=== PATIENT | female | born 1980 | race Caucasian/White ===

== ENCOUNTER 2016-08-30 15:38 | Emergency (ER) | payer OTHER ==
--- NOTE | 2016-08-30 13:26 | PM ---
DATE OF VISIT: 08/30/2016. SEEN BY: KATHE Moss.* HISTORY: Ms. Cheney is a 36-year-old woman seen today at the [facility] for follow-up of going chronic pain. She suffers from neck pain, bilateral arm pain and right leg pain. She does suffer from complex regional pain syndrome of the right leg. The pain underwent vein stripping with Dr. Kimbrough approximately [id number] months ago and feels she has recovered from that surgical procedure and is doing fairly well. She does report in the last few months she has had increased pain in her right abdomen and right hip. She is currently on permanent disability due to her ongoing chronic pain. Her current pain management regime includes OxyContin 20 mg b.i.d., Oxycodone 15 mg up to four times daily, Neurontin 600 mg q.i.d., and Robaxin 500 mg b.i.d. She denies any adverse effect from this medication regime. She reports her current pain level is 6/10 and feels current pain regime is 60 percent efficacious. The patient does continue smoking approximately five cigarettes per day. She reports rare alcohol use. PHYSICAL EXAMINATION: Vital Signs: Blood pressure 147/85, pulse 97, respirations 14, O2 saturations 97 percent on room air. The patient is alert and oriented times three, cooperative with exam and coherent with a logical thought process. She does have some tenderness over the right hip and right abdomen with palpation. Sensation is intact to light touch in the upper and lower extremities. She does also have tenderness along the cervical spine. No range of motion limitations with head and neck extension and flexion or side to side turning. She is ambulatory with a steady gait without any assistive devices. ASSESSMENT: Chronic neck pain, bilateral arm pain, right leg pain, and right hip pain. PLAN: At this point, we will continue the patient on the current pain management regime stated above as she does report it being 60 percent efficacious. The patient will follow up in two months or sooner if needed. The [facility] I-STOP was checked and was as anticipated. RUTHANN MICHAUD NP CC: Dr. Law* [id number]/[facility] #: [id number] KALYAN
[2016-08-30 16:50] VITALS: BP 141/90
== END 2016-08-30 17:08 | disposition left against medical advice (07) ==
LOC: ED 15:38
DX: K62.5 Hemorrhage of anus and rectum (principal); Z53.21 Procedure and treatment not carried out due to patient leaving prior to being seen by health care provider
CPT/HCPCS: 99281

== ENCOUNTER 2017-03-06 18:25 | Emergency (ER) | payer OTHER ==
--- NOTE | 2017-03-06 20:49 | ED ---
Oscar Little SooYoung, scribed for Saravanan Arias MD on 03/06/17 at 1951 . Lower Extremity - HPI Summary HPI Summary: A 36 y/o F presents to ED with c/o hematomas to lateral aspect of R calf onset this afternoon. She states she fell from a kneeling position, and a few minutes later, once she was sitting, she noticed three painful bulges on her calf. Pain described as sharp and radiating up her RLE. PMHx: RSD. - History of Current Complaint Chief Complaint: EDExtremityLower Stated Complaint: FALL/RT LEG INJURY Time Seen by Provider: 03/06/17 19:45 Hx Obtained From: Patient Hx Last Menstrual Period: 11/22/14 Mechanism Of Injury: Fall From Height Of: - kneeling Onset of Pain: Minutes Onset/Duration: Still Present Severity Initially: Moderate Severity Currently: Moderate Pain Intensity: 8 Pain Scale Used: 0-10 Numeric Timing: Constant, Lasting Hours Location: Is Discrete @ - R calf Character Of Pain: Sharp Aggravating Factor(s): Nothing Alleviating Factor(s): Nothing - Allergies/Home Medications Allergies/Adverse Reactions: Allergies Allergy/AdvReac Type Severity Reaction Status Date / Time CI Pigment Blue 63 Allergy Severe hives and Verified 03/06/17 19:11 [From Cymbalta] eye pain, sensitivity to light Diphenhydramine Allergy Severe Anaphylatic Verified 03/06/17 19:11 [From Benadryl] Shock Duloxetine [From Cymbalta] Allergy Severe hives and Verified 03/06/17 19:11 eye pain, sensitivity to light Morphine Allergy Severe itch Verified 03/06/17 19:11 Penicillins Allergy Severe Anaphylatic Verified 03/06/17 19:11 Shock Amoxicillin Allergy Anaphylatic Verified 03/06/17 19:11 Shock Vancomycin Allergy Diarrhea Verified 03/06/17 19:11 PMH/Surg Hx/FS Hx/Imm Hx Previously Healthy: No Endocrine/Hematology History: Reports: Hx Anemia - ON IRON FOR Denies: Hx Diabetes, Hx Sickle Cell Disease, Hx Thyroid Disease Cardiovascular History: Denies: Hx Congestive Heart Failure, Hx Hypertension, Hx Pacemaker/ICD, Other Cardiovascular Problems/Disorders Respiratory History: Reports: Hx Sleep Apnea - ?- NOT DIAGNOSED, Other Respiratory Problems/Disorders - PT IS A CURRENT SMOKER Denies: Hx Asthma, Hx Chronic Obstructive Pulmonary Disease (COPD) GI History: Reports: Hx Gastroesophageal Reflux Disease - UNDER CONTROL PER PATIENT WITH MEDICATION, Hx Irritable Bowel - IBS, Other GI Disorders - HEARTBURN History: Reports: Hx Kidney Infection - IN PAST, Hx Kidney Stones - IN PAST Denies: Hx Renal Disease, Other Problems/Disorders Musculoskeletal History: Reports: Hx Arthritis - HANDS, Hx Back Problems, Hx Fibromyalgia, Other Musculoskeletal History - right knee surgery - ACL repair x2 Sensory History: Reports: Hx Cataracts - BILATERAL, Hx Contacts or Glasses - GLASSES Denies: Hx Glaucoma, Hx Hearing Aid Opthamlomology History: Reports: Hx Cataracts - BILATERAL, Hx Contacts or Glasses - GLASSES Denies: Hx Glaucoma Neurological History: Reports: Hx Headaches, 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 RT KNEE ACL [place]ONSTRU[place]OGRAFT [place]STRING [place] [facility] [facility] [place],. Right knee lavage ;. DCS Trial 02/25/14. DCS, PERMANENT STIMULATOR PLACED IN BACK X2 & 04/08/14 AND THEN STIMULATOR COMPLETELY REMOVED (NO LEAD WIRES LEFT) ;. 02/10-. LEEP - 2011. RIGHT HIP TUMOR REMOVED-. RIGHT HIP infection (post tumor removal) with wound vac. right leg varicose vein removal Hx Anesthesia Reactions: Yes - SOME BREATHING ISSUES- RESOLVED WITH OXYGEN-1ST STIMULATOR REMOVAL - Immunization History Date of Tetanus Vaccine: unk Infectious Disease History: No Infectious Disease History: Reports: Hx of Known/Suspected MRSA, History Other Infectious Disease - Staph infections x2 Denies: Traveled Outside the [place] in Last 30 Days - Family History Known Family History: Positive: Hypertension, Other - Mother has hx of blood clots - Social History Occupation: Unemployed Lives: With Family Alcohol Use: None Hx Substance Use: Yes Substance Use Comment - Amount & Last Used: oxycodone and oxycontin Hx Tobacco Use: Yes Smoking Status (MU): Current Every Day Smoker Type: Cigarettes Amount Used/How Often: 1/2 PPD Length of Time of Smoking/Using Tobacco: 20 years Have You Smoked in the Last Year: Yes Review of Systems Negative: Fever Negative: Cough Positive: Myalgia - RLE All Other Systems Reviewed And Are Negative: Yes Physical Exam Triage Information Reviewed: Yes Vital Signs On Initial Exam: Initial Vitals BP 156/78 03/06/17 19:00 Vital Signs Reviewed: Yes Appearance: Positive: No Pain Distress, Obese Skin: Positive: Warm Head/Face: Positive: Normal Head/Face Inspection Eyes: Positive: KYLIE ENT: Positive: Hearing grossly normal Neck: Positive: Supple Respiratory/Lung Sounds: Positive: Breath Sounds Present Cardiovascular: Positive: RRR Abdomen Description: Positive: Nontender, Soft Bowel Sounds: Positive: Present Musculoskeletal: Positive: Other - rt prox lower leg with few areas of non tender hematoma, no calf trnderness Neurological: Positive: Alert, Oriented to Person Place, Time Psychiatric: Positive: Affect/Mood Appropriate Diagnostics - Vital Signs Vital Signs Temp Pulse Resp BP Pulse Ox 03/06/17 19:07 99.2 F 84 16 156/78 98 03/06/17 19:02 89 95 03/06/17 19:01 99.2 F 88 16 156/78 97 03/06/17 19:00 156/78 - Laboratory Lab Statement: Any lab studies that have been ordered have been reviewed, and results considered in the medical decision making process. - Ultrasound No standard instances Ultrasound Interpretation: No Acute Changes - VENOUS DOPPLER, IMPRESSION: No evidence for DVT. Ultrasound Interpretation Completed By: Radiologist Re-Evaluation - Re-Evaluation First Eval Change: Improved - results d/w pt Lower Extremity Course/Dx - Course Course Of Treatment: A 36 y/o F presents to ED with c/o hematomas to lateral aspect of R calf onset this afternoon. She states she fell from a kneeling position, and a few minutes later, once she was sitting, she noticed three painful bulges on her calf. Pain described as sharp and radiating up her RLE. PMHx: RSD. Venous Doppler U/S shows no evidence for DVT. Will D/C pt home to f/ u with PCP. - Diagnoses Provider Diagnoses: Leg pain Discharge - Discharge Plan Condition: Stable Disposition: HOME Patient Education Materials: Leg Pain (ED) Referrals: Alison Law MD [Primary Care Provider] - 2 Days Additional Instructions: Please return to the ED if you experience new or worsening symptoms. The documentation as recorded by the Oscar regalado SooYoung accurately reflects the service I personally performed and the decisions made by me, Saravanan Arias MD.
--- NOTE | 2017-03-06 21:15 | RAD ---
HISTORY: Right lateral calf bruising TECHNIQUE: Multiple transverse and longitudinal ultrasound images were obtained of the veins of the right lower extremity using grayscale, color Doppler, and spectral Doppler imaging with and without compression and with augmentation. FINDINGS: VEINS: The common femoral vein, deep femoral vein, femoral vein and popliteal vein are compressible throughout their course, with normal flow on color Doppler imaging and normal response to augmentation on spectral Doppler imaging. SOFT TISSUES: Grossly normal. No large popliteal fossa cyst was identified. IMPRESSION: No sonographic evidence of deep vein thrombosis.
[2017-03-06 21:29] VITALS: BP 127/40
== END 2017-03-06 21:32 | disposition home or self-care (01) ==
LOC: ED 18:25
DX: M79.604 Pain in right leg (principal); M79.1 Myalgia; F17.210 Nicotine dependence, cigarettes, uncomplicated
CPT/HCPCS: 99282

== ENCOUNTER 2018-07-15 12:33 | Emergency (ER) | payer OTHER ==
[2018-07-15 12:52] VITALS: BP 144/96
--- NOTE | 2018-07-15 13:19 | UC ---
Head Injury HPI - HPI Summary HPI Summary: 38 y/o female with h/o fibromyalgia, RSD affecting R LEs, with h/o decreased muscle strength UE due to cervical disease, multiple concussions in past, presents after fall down steps on 07/11/2018, patient fell down 6 steps, landing on buttock/ lower body, believes hit head on wall, no LOC, + dizziness, was helped by after fall, he did not witness fall. Since this time, + headache, + nausea, difficulty focusing, headache that has not improved. - History Of Current Complaint Chief Complaint: UCHeadache Stated Complaint: HEAD INJURY Time Seen by Provider: 07/15/18 12:58 Hx Obtained From: Patient Hx Last Menstrual Period: current ?: No Onset/Duration: Sudden Onset, Lasting Days - Since thurs Severity Currently: Moderate Severity Initially: Moderate Pain Intensity: 7 Pain Scale Used: 0-10 Numeric - Allergies/Home Medications Allergies/Adverse Reactions: Allergies Allergy/AdvReac Type Severity Reaction Status Date / Time amoxicillin Allergy Severe Anaphylatic Verified 07/15/18 10:20 Shock diphenhydramine Allergy Severe Anaphylatic Verified 07/15/18 10:20 [From Benadryl] Shock duloxetine [From Cymbalta] Allergy Severe Hives Verified 07/15/18 10:20 Penicillins Allergy Severe Anaphylatic Verified 07/15/18 10:20 Shock morphine AdvReac Itching Verified 07/15/18 10:20 vancomycin AdvReac Diarrhea Verified 07/15/18 10:20 CI Pigment Blue 63 Allergy Severe Hives Uncoded 06/07/18 12:06 PMH/Surg Hx/FS Hx/Imm Hx Previously Healthy: Yes - Surgical History Surgical History: Yes Surgery Procedure, Year, and Place: NECK FUSION 2011,. RT KNEE ACL RECONSTRU[place] W/[place]OGRAFT [place]STRING [place] [facility] [place],. Right knee lavage DUE TO INFECTIONS. DCS Trial 02/25/14. DCS, PERMANENT STIMULATOR PLACED IN BACK X2 07/27/14 & 04/08/14 AND THEN STIMULATOR COMPLETELY REMOVED (NO LEAD WIRES LEFT) 10/03/14;. 02/10-. LEEP - 2011. RIGHT HIP TUMOR REMOVED- . RIGHT HIP infection (post tumor removal) with wound vac. right leg varicose vein removal - Family History Known Family History: Positive: Hypertension, Other - Mother has hx of blood clots - Social History Alcohol Use: None Alcohol Amount: 1 drink per week Substance Use Type: Marijuana Substance Use Comment - Amount & Last Used: medical Smoking Status (MU): Light Every Day Tobacco Smoker Type: Cigarettes Amount Used/How Often: 1/2 PPD Length of Time of Smoking/Using Tobacco: 20 years Have You Smoked in the Last Year: Yes Household Exposure Type: Cigarettes - Immunization History Most Recent Influenza Vaccination: 2001 Most Recent Tetanus Shot: 2011 Most Recent Pneumonia Vaccination: never Review of Systems All Other Systems Reviewed And Are Negative: Yes Constitutional: Positive: Fatigue Eyes: Positive: Photophobia. Negative: Blurred Vision Gastrointestinal: Positive: Nausea Neurological: Positive: Headache Is Patient Immunocompromised?: No Physical Exam Triage Information Reviewed: Yes Appearance: Well-Appearing, Well-Nourished, Pain Distress - mild Vital Signs: Initial Vital Signs Temp 98.4 F 07/15/18 12:46 Pulse 98 07/15/18 12:46 Resp 16 07/15/18 12:46 BP 144/96 07/15/18 12:46 Pulse Ox 100 07/15/18 12:46 Vital Signs Reviewed: Yes Eyes: Positive: Conjunctiva Clear, Other: - EMOI, PERRLA Neck: Positive: Supple, Tenderness @ - cervical spine, para spinal muscles, SCM , b/l. Negative: Nuchal Rigidity, Enlarged Nodes @ Respiratory: Positive: Chest non-tender Neurological: Positive: Other: - patient with complex medical history of neurlogical deficits, amublating with cane Psychological Exam: Normal Skin Exam: Normal Skin: Positive: Other - no lesions/ bruising, deficits over L skull, neck. Head Injury Course/Dx - Course Course Of Treatment: CT- head, cervical spine negative for acute injury, bleeding. Post-concussion syndrome, info given, OTCs for pain - Differential Dx/Diagnosis Differential Diagnosis/HQI/PQRI: Cerebral Contusion, Concussion With LOC, Concussion Without LOC, Skull Fracture, Zygomatic Fracture Provider Diagnosis: Post concussion syndrome Discharge - Sign-Out/Discharge Documenting (check all that apply): Patient Departure All imaging exams completed and their final reports reviewed: Yes - Discharge Plan Condition: Fair Disposition: HOME Prescriptions: Lidocaine PATCH 5%* [Lidoderm 5% Patch*] 1 patch TRANSDERM DAILY #10 patch Patient Education Materials: Cervical Strain (DC), Post Concussion Syndrome (ED ) Referrals: Alison Law MD [Primary Care Provider] - Additional Instructions: - GO to ER with memory changes, Speech/ motor changes, increased headache or vomiting - Increase rest - increase fluids - Motrin/ tylenol as needed for pain, headache - Billing Disposition and Condition Condition: FAIR Disposition: Home
== END 2018-07-15 14:28 | disposition home or self-care (01) ==
LOC: UCEAST 12:33
DX: F07.81 Postconcussional syndrome (principal); W10.9XXA Fall (on) (from) unspecified stairs and steps, initial encounter; Y93.9 Activity, unspecified; Y92.9 Unspecified place or not applicable; Z88.0 Allergy status to penicillin; Z88.1 Allergy status to other antibiotic agents; Z88.2 Allergy status to sulfonamides; Z88.8 Allergy status to other drugs, medicaments and biological substances; F17.210 Nicotine dependence, cigarettes, uncomplicated
CPT/HCPCS: 70450; 72125; 99212; G0463

== ENCOUNTER 2019-03-07 13:33 | Emergency (ER) | payer OTHER ==
[2019-03-07 13:50] VITALS: BP 141/80
--- NOTE | 2019-03-07 14:12 | UC ---
Lower Extremity/Ankle HPI - HPI Summary HPI Summary: 4 DAYS OF RIGHT FOOT PAIN AND SWELLING AFTER [place]. PATIENT HAS CHRONIC PAIN IN HER RIGHT LOWER EXTREMITY DUE TO RSD BUT STATES HER FOOT NOW FEELS WORSE. SHE ALSO HAS SOME SWELLING IN HER LEFT FOOT. SHE DOES REPORT A RECENT 6 HOUR CAR RIDE HOWEVER THE SWELLING STARTED BEFORE THIS. SHE IS NOT CONCERNED ABOUT DVT TODAY. - History of Current Complaint Chief Complaint: UCLowerExtremity Stated Complaint: FOOT INJURY Time Seen by Provider: 03/07/19 13:48 Hx Obtained From: Patient Hx Last Menstrual Period: 02/15/19 Onset/Duration: Sudden Onset, Lasting Days, Still Present Severity Initially: Moderate Severity Currently: Moderate Pain Intensity: 8 Pain Scale Used: 0-10 Numeric Aggravating Factor(s): Standing, Ambulation Alleviating Factor(s): Rest, Elevation Able to Bear Weight: Yes - Allergies/Home Medications Allergies/Adverse Reactions: Allergies Allergy/AdvReac Type Severity Reaction Status Date / Time amoxicillin Allergy Severe Anaphylatic Verified 03/07/19 13:50 Shock diphenhydramine Allergy Severe Anaphylatic Verified 03/07/19 13:50 [From Benadryl] Shock duloxetine [From Cymbalta] Allergy Severe Hives Verified 03/07/19 13:50 Penicillins Allergy Severe Anaphylatic Verified 03/07/19 13:50 Shock morphine AdvReac Itching Verified 03/07/19 13:50 vancomycin AdvReac Diarrhea Verified 03/07/19 13:50 CI Pigment Blue 63 Allergy Severe Hives Uncoded 03/07/19 13:50 Home Medications: Home Medications Ibuprofen TAB* [Advil TAB*] 400 mg PO Q6H PRN 03/07/19 [History Confirmed ] PMH/Surg Hx/FS Hx/Imm Hx Cardiovascular History: Hypertension - Surgical History Surgical History: Yes Surgery Procedure, Year, and Place: NECK FUSION 2011,. RT KNEE ACL RECONSTRUCTION W/AUTOGRAFT HAMSTRING 2012 @ [facility] – [place]/ DR AVILA,. Right knee lavage DUE TO INFECTIONS. DCS Trial 02/25/14. DCS, PERMANENT STIMULATOR PLACED IN BACK X2 07/27/14 & 04/08/14 AND THEN STIMULATOR COMPLETELY REMOVED (NO LEAD WIRES LEFT) 10/03/14;. 02/10-. LEEP - 2011. RIGHT HIP TUMOR REMOVED- . RIGHT HIP infection (post tumor removal) with wound vac. right leg varicose vein removal - Family History Known Family History: Positive: Hypertension, Other - Mother has hx of blood clots - Social History Alcohol Use: Rare Alcohol Amount: 1 drink per week Substance Use Type: Marijuana Substance Use Comment - Amount & Last Used: about twice a week Smoking Status (MU): Light Every Day Tobacco Smoker Type: Cigarettes Amount Used/How Often: 1/2 PPD Length of Time of Smoking/Using Tobacco: 20 years Have You Smoked in the Last Year: Yes Household Exposure Type: Cigarettes - Immunization History Most Recent Influenza Vaccination: 2001 Most Recent Tetanus Shot: 2011 Most Recent Pneumonia Vaccination: never Review of Systems All Other Systems Reviewed And Are Negative: Yes Constitutional: Positive: Negative Skin: Positive: Negative Respiratory: Positive: Negative Cardiovascular: Positive: Negative Gastrointestinal: Positive: Negative Musculoskeletal: Positive: Arthralgia, Edema. Negative: Calf Tenderness Physical Exam Triage Information Reviewed: Yes Appearance: Well-Appearing, No Pain Distress, Well-Nourished Vital Signs: Initial Vital Signs Temp 99.5 F 03/07/19 13:43 Pulse 95 03/07/19 13:43 Resp 16 03/07/19 13:43 BP 141/80 03/07/19 13:43 Pulse Ox 97 03/07/19 13:43 Vital Signs Reviewed: Yes Eyes: Positive: Conjunctiva Clear ENT: Positive: Hearing grossly normal Neck: Positive: Supple Respiratory: Positive: No respiratory distress, No accessory muscle use Cardiovascular: Positive: Pulses Normal Abdomen Description: Positive: Soft Musculoskeletal: Positive: ROM Limited @ - RIGHT FOOT, Edema @ - BILATERAL FEET 1+, Other: - TTP BRIDGE OF RIGHT FOOT Neurological: Positive: Alert Psychological: Positive: Age Appropriate Behavior Skin: Negative: Rashes Diagnostics - Radiology RIGHT FOOT XRAY Radiology Interpretation Completed By: Radiologist Summary of Radiographic Findings: SOFT TISSUE SWELLING, NO FRACTURE IS SEEN. Lower Extremity Course/Dx - Course Course Of Treatment: X-RAY SHOWS SOFT TISSUE SWELLING BUT NO BONY INJURY. UNCLEAR ETIOLOGY OF THE SWELLING IN PATIENTS FEET. SHE IS NOT CONCERNED ABOUT DVT TODAY. ADVISED TO FOLLOW-UP WITH ORTHOPEDICS IF HER SYMPTOMS DO NOT IMPROVE. TO THE ER WITHOUT FAIL IF HER SYMPTOMS WORSEN. - Differential Dx/Diagnosis Provider Diagnosis: Right foot sprain Discharge - Sign-Out/Discharge Documenting (check all that apply): Patient Departure All imaging exams completed and their final reports reviewed: Yes - Discharge Plan Condition: Stable Disposition: HOME Patient Education Materials: Foot Sprain (ED) Referrals: Raman Rizo MD [Medical Doctor] - If Needed Alison Law MD [Primary Care Provider] - If Needed Additional Instructions: XRAY TODAY NEGATIVE FOR FRACTURE OR DISLOCATION. YOUR SYMPTOMS SHOULD IMPROVE SIGNIFICANTLY OVER THE NEXT 1-2 WEEKS. IF YOU DO NOT IMPROVE EXPECTED FOLLOW- UP WITH YOUR PCP OR ORTHO. YOU MAY BENEFIT FROM REPEAT IMAGING AT THAT TIME. OTC IBUPROFEN OR ALEVE NEEDED FOR DISCOMFORT. REST, ICE, COMPRESS, ELEVATE. CAMBOOT TO HELP WITH MOBILITY. - Billing Disposition and Condition Condition: STABLE Disposition: Home
== END 2019-03-07 14:47 | disposition home or self-care (01) ==
LOC: UCEAST 13:33
DX: S93.601A Unspecified sprain of right foot, initial encounter (principal); W20.8XXA Other cause of strike by thrown, projected or falling object, initial encounter; Y93.11 Activity, swimming; Y92.832 Beach as the place of occurrence of the external cause; Y99.8 Other external cause status; F17.210 Nicotine dependence, cigarettes, uncomplicated; Z88.0 Allergy status to penicillin; Z88.5 Allergy status to narcotic agent
CPT/HCPCS: 99213; G0463

== ENCOUNTER 2020-12-27 10:51 | Observation (INO) ==
[2020-12-27] MEDS ORDERED: fentaNYL 100 mcg/2 ml 50 MCG/ML VIAL IV SLOW PU ONE (12:21)
[2020-12-27 12:54] LABS: ABS Basophils 0.1 10^3/ul (0-0.2); ABS Eosinophils 0.1 10^3/ul (0-0.6); ABS Lymphocytes 2.5 10^3/ul (1.0-4.8); ABS Monocytes 0.8 10^3/ul (0-0.8); ABS Neutrophils 7.1 10^3/ul (1.5-7.7); Eosinophil % 0.8 %; Hematocrit 41 % (35-47); Hemoglobin 13.5 g/dL (12.0-16.0); Lymphocyte % 23.9 %; Mean Corpuscular HGB Conc 33 g/dL (31-36); Mean Corpuscular Hemoglobin 25 pg (27-31); Mean Corpuscular Volume 77 fL (80-97); Mean Platelet Volume 7.8 fL (7.4-10.4); Nucleated Red Blood Cells % 0.1; Platelet Count 307 10^3/uL (150-450); Red Blood Count 5.33 10^6 /uL (3.70-4.87); Red Cell Distribution Width 23 % (10-15); White Blood Count 10.6 10^3/uL (3.5-10.8)
[2020-12-27 13:03] LABS: Activated Partial Thrombo Time 29.5 seconds (26.0-38.0); INR 1.03 (0.82-1.09)
[2020-12-27 13:18] LABS: HCG Pregnancy < 0.60 mIU/mL
[2020-12-27 13:26] LABS: Anion Gap 7 mmol/L (2-11); CO2 Carbon Dioxide 28 mmol/L (22-32); Calcium 9.2 mg/dL (8.6-10.3); Chloride 99 mmol/L (101-111); Potassium 3.8 mmol/L (3.5-5.0); Sodium 134 mmol/L (135-145)
[2020-12-27 13:31] LABS: ALT 15 U/L (7-52); AST 14 U/L (13-39); Albumin/Globulin Ratio 1.3 (1-3); Alkaline Phosphatase 70 U/L (35-149); Blood Urea Nitrogen 14 mg/dL (6-24); EGFR African American 83.1 (>60); EGFR Non-African American 68.7 (>60); Glucose 93 mg/dL (70-100)
[2020-12-27] MEDS ORDERED: [UNRECOGNIZED DRUG - REMARK] PO PRN (17:05)
[2020-12-27] MEDS ORDERED: NS 0.9% 1000 ml BAG 1,000 ML IV SCH (20:30)
[2020-12-27] MEDS: oxyCODONE SR 20 mg TAB PO SCH (21:50)
[2020-12-28 06:42] LABS: Hematocrit 39 % (35-47); Hemoglobin 13.2 g/dL (12.0-16.0); Mean Corpuscular HGB Conc 34 g/dL (31-36); Mean Corpuscular Hemoglobin 26 pg (27-31); Mean Corpuscular Volume 77 fL (80-97); Platelet Count 314 10^3/uL (150-450); Red Blood Count 5.05 10^6 /uL (3.70-4.87); Red Cell Distribution Width 23 % (10-15); White Blood Count 9.5 10^3/uL (3.5-10.8)
[2020-12-28 06:47] LABS: Calcium 8.9 mg/dL (8.6-10.3); Potassium 3.4 mmol/L (3.5-5.0)
[2020-12-28] MEDS: oxyCODONE SR 20 mg TAB PO SCH (08:52)
[2020-12-28] MEDS ORDERED: SPIRIVA Respimat (tiotropium) 2.5 mcg/inh Inhaler INH SCH (09:00)
[2020-12-28] MEDS ORDERED: Nicotine PATCH 14 MG/24 HR PATCH TRANSDERM SCH (10:00)
[2020-12-28 15:34] VITALS: BP 121/85
== END 2020-12-28 17:10 | disposition short-term general hospital (02) ==
LOC: SSU 10:51 → ED 10:51 → SSU 17:55
PROVIDERS: ADMIT Internal Medicine; ATTEND Internal Medicine

== ENCOUNTER 2022-05-24 05:41 | Inpatient (IN) ==
[~2022-05-24 05:41] MED LIST: Naloxone 0.4 mg VIAL 0.4 mg/ml 1 ml VIAL IV PRN; Ondansetron 4 mg VIAL 2 MG/ML 2 ml VIAL IV PRN; oxyCODONE/Acetamin 5/325 mg TAB PO PRN
[2022-05-24] MEDS ORDERED: Buffered Lidocaine 1% SYRIN 1 ml INTRADERM ONE (06:00)
[2022-05-24] MEDS ORDERED: Lactated Ringers 1000 ml BAG 1,000 ML IV SCH (06:00)
[2022-05-24] MEDS ORDERED: Clindamycin 900 MG/D5W BAG 900 MG/50 ML BAG IVPB ONE (06:15)
[2022-05-24] MEDS ORDERED: Heparin 5000 UNITS/ML 1 mL VIAL ONE (06:15)
[2022-05-24] MEDS ORDERED: Scopolamine 1 mg/72hr PATCH ONE ×2 (06:15→15:44)
[2022-05-24] MEDS ORDERED: Bupivacaine 0.25% EPI 200,000 30 ML SDV ONE (07:58)
[2022-05-24] MEDS ORDERED: Methylene Blue 0.5 % 50 MG/10 ML AMP IV ONE (07:59)
[2022-05-24] MEDS ORDERED: Midazolam 5 mg/5 ml VIAL 1 mg/ml 5 ml VIAL (5 mg) ONE (08:21)
[2022-05-24] MEDS ORDERED: fentaNYL 250 mcg/5 ml 50 MCG/ML 5 ml VIAL (250 MCG) ONE (08:21)
[2022-05-24] MEDS ORDERED: Rocuronium 50 mg VIAL 10 mg/ml 5 ml VIAL (50 mg) ONE (08:22)
[2022-05-24] MEDS ORDERED: Propofol 10 MG/ML 20 ML BTL ONE (08:22)
[2022-05-24] MEDS ORDERED: Dexamethasone IV 4 MG/ML VIAL 1 ml VIAL ONE (08:22)
[2022-05-24] MEDS ORDERED: Ondansetron 4 mg VIAL 2 MG/ML 2 ml VIAL ONE ×2 (08:26→12:46)
[2022-05-24] MEDS ORDERED: Lidocaine 2% PF 5 ML VIAL ONE (09:29)
[2022-05-24] MEDS ORDERED: fentaNYL 100 mcg/2 ml 50 MCG/ML VIAL ONE ×2 (10:58→12:53)
[2022-05-24] MEDS ORDERED: HYDROcodone/ACET. 7.5/325 LIQ 15 ML UDC PO PRN (12:32)
[2022-05-24] MEDS ORDERED: Ondansetron 4 mg VIAL 2 MG/ML 2 ml VIAL IV PRN (12:32)
[2022-05-24] MEDS: fentaNYL 100 mcg/2 ml 50 MCG/ML VIAL IV PRN ×2 (12:55→13:08)
[2022-05-24] MEDS ORDERED: fentaNYL PATCH 37.5 MCG/HR(NF) PATCH.TD72 TRANSDERM SCH (14:00)
[2022-05-24] MEDS: Lactated Ringers 1000 ml BAG 1,000 ML IV SCH ×2 (14:22→21:20)
[2022-05-24] MEDS ORDERED: Prochlorperazine 5 mg/ml 2 ml VIAL (10 mg) ONE (15:20)
[2022-05-24] MEDS ORDERED: fentaNYL PATCH 25 MCG/HR 1 PATCH TRANSDERM SCH (15:30)
[2022-05-24] MEDS ORDERED: fentaNYL PATCH 12 MCG/HR 1 PATCH TRANSDERM SCH (15:30)
[2022-05-24] MEDS ORDERED: Scopolamine 1 mg/72hr PATCH TRANSDERM SCH ×2 (15:49→16:00)
[2022-05-24] MEDS: HYDROmorphone 0.5 MG/0.5 ML SYRINGE IV SLOW PU PRN ×2 (17:57→21:22)
[2022-05-24] MEDS: fentaNYL Patch Check Q Shift NOTE FOLLOW UP SCH ×2 (19:21)
[2022-05-25] MEDS: HYDROmorphone 0.5 MG/0.5 ML SYRINGE IV SLOW PU PRN ×3 (00:23→07:37)
[2022-05-25] MEDS: Prochlorperazine 5 mg/ml 2 ml VIAL (10 mg) IV PRN ×2 (01:39→07:43)
[2022-05-25] MEDS: Lactated Ringers 1000 ml BAG 1,000 ML IV SCH (04:57)
[2022-05-25] MEDS: Heparin 5000 UNITS/ML 1 mL VIAL SUBCUT SCH ×2 (05:48→13:34)
[2022-05-25] MEDS: fentaNYL Patch Check Q Shift NOTE FOLLOW UP SCH ×2 (07:06→07:07)
[2022-05-25] MEDS ORDERED: Influenza vaccine *QUAD* *2022-23* 0.5 ML SYRINGE IM ONE (09:00)
[2022-05-25] MEDS ORDERED: SPIRIVA Respimat (tiotropium) 2.5 mcg/inh Inhaler INH SCH (09:00)
[2022-05-25] MEDS ORDERED: Lidocaine PATCH 5% PATCH TRANSDERM PRN (09:07)
[2022-05-25 11:36] VITALS: BP 114/67
[2022-05-25] MEDS ORDERED: D5W 1/2 NS KCl 20 meq 1000 ml 1,000 ML IV SCH (13:00)
== END 2022-05-25 14:00 | disposition home or self-care (01) | DRG 620 ==
LOC: AA 05:41 → SSU 14:23
PROVIDERS: ADMIT Surgery; ATTEND Surgery